=== PATIENT | female | born 1985 | race Caucasian/White ===

== ENCOUNTER 2023-11-09 22:49 | Emergency (ER) | payer OTHER, SELFPAY ==
[2023-11-09 22:51] VITALS: BP 132/94
--- NOTE | 2023-11-10 00:20 | ED.GENMED ---
History of Present Illness
<LEONARDO Mueller - Last Filed: 11/10/23 05:25>
General
Chief Complaint: Back Pain
Source: spouse
Exam Limitations: none
Time Seen by Provider: 11/10/23 00:09
Nursing documentation reviewed up to this point in time: agreed with
History of Present Illness
History of Present Illness:
Pt is a 38 y/o F with complaints of left sided lower back pain x9 hrs. The pt reported that she had returned from a run and when she reached in her refrigerator, she had turned her body to cough and felt a sudden onset of lower back pain. The pain
is described as a sharp sensation that is rated 10/10 in severity. Course of pain is worsening. The pain is better with sitting and worse with laying down and movement. She has tried Ibuprofen, Naproxen, and 1x oxycodone at 9pm without any relief.
The pain radiates down the left leg. Pt denies numbness, tingling, weakness, and urinary or bowel incontinence.
<Bruce Jerome DO - Last Filed: 11/10/23 02:54>
General
Source: patient
Past History
<LEONARDO Mueller - Last Filed: 11/10/23 05:25>
Past History
ED Past Medical History: None
ED Past Surgical History: None
Review of Systems
<LEONARDO Mueller - Last Filed: 11/10/23 05:25>
Review of Systems
Allergies reviewed?: Yes
Constitutional: Reports no symptoms
EENT: Reports no symptoms
Respiratory: Reports no symptoms
Cardiac: Reports no symptoms
ABD/GI: Reports no symptoms
: Reports no symptoms
Musculoskeletal: Reports back pain
Skin: Reports no symptoms
Neurological: Reports no symptoms
Endocrine: Reports no symptoms
Hematologic/Lymphatic: Reports no symptoms
Psychiatric: Reports no symptoms
Phy Exam
<LEONARDO Mueller - Last Filed: 11/10/23 05:25>
General Physical Exam
General Presentation: well appearing and moderate distress
General age: appears stated age
General Skin: warm and dry
General Habitus: normal
General Mental: alert
General Hydration: appears well hydrated
ENT Exam
ENT Exam: neck supple
Eye Exam
Eye Exam: cornea clear and conjunctiva normal
Cardiovascular Exam
Cardiovascular Exam: regular rate/rhythm and normal peripheral pulses
Pulmonary Exam
Pulmonary Exam: no respiratory distress
Gastrointestinal Exam
Gastrointestinal Exam: soft and non distended
Neurological Exam
Neurological Exam: alert, oriented x3, normal reflexs and no sensory deficits
Musculoskeletal Exam
Musculoskeletal Exam: back pain, no edema, back tenderness, neuro vasc intact and other (Decreased lumbar flexion and extension. Positive straight leg raise. Positive crossed straight leg raise.)
Skin Exam
Skin Exam: normal color and warm/dry
Psychiatric Exam
Psychiatric Exam: normal mood/affect
Course
<LEONARDO Mueller - Last Filed: 11/10/23 05:25>
Orders/Labs/Results
Orders:
Orders
11/10/23 01:02
Diazepam [Valium] 5 mg PO NOW STA
11/10/23 01:37
HCG, Urine Qualitative Screen Urgent
Date Specimen was Collected: 11/10/23
Time Specimen was Collected: 01:27
Comment: ADD ON
Urinalysis Reflex To Culture Urgent
Date Specimen was Collected: 11/10/23
Time Specimen was Collected: 01:27
11/10/23 01:48
Add On- LAB Urgent
Tests Added?: urine hcg
Ketorolac [Toradol] 30 mg IM NOW STA
Vital Signs
Initial and Last Documented VS:
Initial Vital Signs
Temp Pulse Resp BP Pulse Ox
97.8 F 84 22 132/94 100
11/09/23 22:51 11/09/23 22:51 11/09/23 22:51 11/09/23 22:51 11/09/23 22:51
Last Documented Vital Signs
Temp Pulse Resp BP Pulse Ox
97.8 F 80 13 133/78 97
11/09/23 22:51 11/10/23 02:59 11/10/23 02:59 11/10/23 02:59 11/10/23 02:59
<Bruce Jerome DO - Last Filed: 11/10/23 02:54>
Orders/Labs/Results
Orders:
Orders
11/10/23 01:02
Diazepam [Valium] 5 mg PO NOW STA
11/10/23 01:37
HCG, Urine Qualitative Screen Urgent
Date Specimen was Collected: 11/10/23
Time Specimen was Collected: 01:27
Comment: ADD ON
Urinalysis Reflex To Culture Urgent
Date Specimen was Collected: 11/10/23
Time Specimen was Collected: 01:27
11/10/23 01:48
Add On- LAB Urgent
Tests Added?: urine hcg
Ketorolac [Toradol] 30 mg IM NOW STA
Vital Signs
Initial and Last Documented VS:
Initial Vital Signs
Temp Pulse Resp BP Pulse Ox
97.8 F 84 22 132/94 100
11/09/23 22:51 11/09/23 22:51 11/09/23 22:51 11/09/23 22:51 11/09/23 22:51
Last Documented Vital Signs
Temp Pulse Resp BP Pulse Ox
97.8 F 80 13 133/78 97
11/09/23 22:51 11/10/23 02:59 11/10/23 02:59 11/10/23 02:59 11/10/23 02:59
<LEONARDO Mueller - Last Filed: 11/10/23 05:25>
MDM/Problems Addressed
Differential Diagnosis Includes:
Acute lumbar strain
Lumbar radiculopathy
<LEONARDO Mueller - Last Filed: 11/10/23 05:25>
*Critical Care Note
Total Time (30-74mins, 75-104mins- exclusive of procedures): Not Applicable
ED Attending Note
<LEONARDO Mueller - Last Filed: 11/10/23 05:25>
-
Portions of this chart may have been created with voice recognition software.� Occasional wrong word or��sound alike� substitutions may have occurred due to the inherent limitations of voice recognition software.
<Bruce Jerome DO - Last Filed: 11/10/23 02:54>
ED Attending Note
Patient seen and examined by attending physician: Yes
I performed the substantive portion of visit, reviewed & personally made and approve the management plan that is documented in note by myself or NEELA.: Yes
ED Attending Note:
Pleasant 38-year-old female presents with left-sided lower back pain that is been present since 3 PM. She states that she got back from a run and was at her refrigerator. She reached in and twisted her torso and felt immediate pain. She states
that it was sharp and it was 10 out of 10. She reports that her pain is worse when lying down and with movement. She took NSAIDs and oxycodone without relief. She does report the pain rating down her left leg. Denies numbness or tingling.
Denies bowel or bladder retention or incontinence. Patient was seen in conjunction with the PA student. I have reviewed and agree with the history and treatment plan presented. On my independent physical exam, patient is awake, alert, and
oriented x3, moderate acute distress. No respiratory distress. She does have left CVA tenderness. Denies abdominal pain. No abdominal tenderness to palpation.
11/10/2023 0252 AM: Patient feeling much better. She is able to ambulate around the room. She states that the medications have worked. Will discharge her.
Discharge Plan
Departure
Patient Disposition: Home (Routine Discharge)
Date of Disposition: 11/10/23
Time of Disposition: 02:52
Patient with high blood pressure during this ER visit?: Yes
Condition: Good
Discharge Problem:
Back pain
Instructions: Low Back Pain (DC), BLOOD PRESSURE
Prescriptions:
New
diclofenac sodium 75 mg tablet,delayed release (DR/EC)
75 mg PO BID Qty: 10 0RF
cyclobenzaprine 5 mg tablet
5 mg PO BID PRN (Reason: muscle spasm) Qty: 10 0RF
Referrals:
Amelia Rogel CRNP [Family Provider] -
Activity Restrictions/Additional Instructions:
It was a pleasure meeting you and taking part in your care. We hope for your continued healing and wellness.
Please read discharge instructions in their entirety. However, they are for general education and may not describe your exact diagnosis at discharge. Information on your ER visit and medical conditions were discussed with you along with appropriate
follow up information...
If indicated, please take your medications as instructed and indicated on discharge paperwork.
Please schedule a follow up appointment as directed. Call to schedule an appointment
Please return to the emergency department with ANY change in, persisting, or worsening of symptoms. If any of your symptoms do not improve, or persist, or become more severe within 6-12 hours, please return to the emergency department for further
care.
Please return to the emergency department if you develop a headache, neck pain/stiffness, fever greater than 100.4F, chest pain, shortness of breath, persistent nausea, vomiting, slurred speech, difficulty walking, numbness/tingling, weakness, signs
of infection or any other symptoms that are worrisome to you.
If you have any questions or concerns please do not hesitate to call the Hospital at or E-mail me directly at [email or web address]
Interventions
Interventions:
*Risk Screen - Suicide Last Done: 11/09/23 22:51
*General Assessment Last Done: 11/09/23 23:07
*Neglect/Abuse Screening Last Done: 11/09/23 22:51
ED- Fall Risk Assessment Last Done: 11/09/23 23:07
*ED COVID-19 Vaccine History Last Done: 11/09/23 23:07
*Nursing Disposition Last Done: 11/10/23 03:00
ED-Musculoskeletal Assessment Last Done: 11/09/23 23:10
Discharge Date and Time
Discharge Date/Time: 11/10/23 03:01
Print Language: SPANISH
[2023-11-10] MEDS: VALIUM 5 MG PO (01:05)
[2023-11-10 01:48] LABS: Urine Albumin Negative (Neg - Trace); Urine Bilirubin Negative (Negative); Urine Character Clear (Clear); Urine Color Yellow; Urine Glucose Negative (Negative); Urine Ketone Negative (Negative); Urine Leukocyte Negative (Negative); Urine Nitrite Negative (Negative); Urine Occult Blood Negative (Negative); Urine Specific Gravity 1.015 (<1.030); Urine Urobilinogen Negative (Neg - 1+)
[2023-11-10] MEDS: TORADOL 30 MG IM (01:50)
[2023-11-10 01:56] LABS: HCG, Urine Qualitative Screen Negative
[2023-11-10 02:59] VITALS: BP 133/78
== END 2023-11-10 03:01 | disposition home or self-care (01) ==
LOC: EMR 22:49
PROVIDERS: EMERGENCY PHYSICIAN Student in an Organized Health Care Education/Training Program; FAMILY PHYSICIAN Nurse Practitioner Adult Health
DX: M54.50 Low back pain, unspecified (principal); R03.0 Elevated blood-pressure reading, without diagnosis of hypertension
CPT/HCPCS: 99284; 96372; 81003; 81025

== ENCOUNTER 2024-09-13 23:27 | Emergency (ER) | payer OTHER, SELFPAY ==
[2024-09-13 23:42] VITALS: BP 116/85
[2024-09-14 00:27] LABS: HCG, Serum Qualitative Screen Negative
[2024-09-14 00:54] LABS: Hematocrit 36.9 % (37.0-47.0); Hemoglobin 13.1 g/dL (12.0-16.0); Mean Corp Hgb Conc. 35.5 g/dL (33.0-37.0); Mean Corpuscular Volume 91.3 fL (81.0-99.0); Nucleated Red Blood Cells % 0 %; Platelet Count 285 10^3/uL (130-400); Red Cell Dist. Width 12.4 % (11.5-14.5)
[2024-09-14 00:57] LABS: ALT (SGPT) 18 U/L (0-35); AST (SGOT) 21 U/L (14-36); Albumin 4.6 g/dl (3.5-5.0); Alkaline Phosphatase 48 U/L (38-126); Blood Urea Nitrogen 11 mg/dl (7-17); Calcium 10.0 mg/dl (8.4-10.2); Carbon Dioxide 23 mmol/L (22-30); Chloride 106 mmol/L (98-107); Glucose 116 mg/dl (70-99); Lipase 63 U/L (23-300); Potassium 4.2 mmol/L (3.5-5.1); Sodium 137 mmol/L (135-145); Total Protein 7.6 g/dl (6.3-8.2); eGFR > 60.00
[2024-09-14 02:22] VITALS: BP 124/76
[2024-09-14] MEDS: OMNIPAQUE 50 ML PO (02:34)
== END 2024-09-14 03:52 ==
LOC: EMR 23:27
PROVIDERS: Student in an Organized Health Care Education/Training Program; EMERGENCY PHYSICIAN Emergency Medicine; FAMILY PHYSICIAN Family Medicine
DX: R10.9 Unspecified abdominal pain (principal); Z53.21 Procedure and treatment not carried out due to patient leaving prior to being seen by health care provider
CPT/HCPCS: 80053; 83690; 84703; 85025

== ENCOUNTER 2024-09-15 03:32 | Observation (INO) | payer OTHER, SELFPAY ==
[2024-09-14 19:29] VITALS: BP 149/82
[2024-09-14] MEDS: OMNIPAQUE 50 ML PO (19:38)
[2024-09-14 19:56] LABS: Hematocrit 36.3 % (37.0-47.0); Hemoglobin 12.4 g/dL (12.0-16.0); Mean Corp Hgb Conc. 34.2 g/dL (33.0-37.0); Mean Corpuscular Volume 93.8 fL (81.0-99.0); Nucleated Red Blood Cells % 0 %; Platelet Count 275 10^3/uL (130-400); Red Cell Dist. Width 12.6 % (11.5-14.5)
[2024-09-14 20:14] LABS: HCG, Serum Qualitative Screen Negative
[2024-09-14 20:23] LABS: ALT (SGPT) 14 U/L (0-35); AST (SGOT) 17 U/L (14-36); Albumin 4.2 g/dl (3.5-5.0); Alkaline Phosphatase 38 U/L (38-126); Blood Urea Nitrogen 8 mg/dl (7-17); Calcium 9.3 mg/dl (8.4-10.2); Carbon Dioxide 26 mmol/L (22-30); Chloride 108 mmol/L (98-107); Glucose 91 mg/dl (70-99); Lipase 127 U/L (23-300); Potassium 4.3 mmol/L (3.5-5.1); Sodium 138 mmol/L (135-145); Total Protein 7.0 g/dl (6.3-8.2); eGFR > 60.00
[2024-09-14 22:05] VITALS: BP 118/78
--- NOTE | 2024-09-14 23:04 | ED.GENMED ---
History of Present Illness
General
Chief Complaint: Abdominal Pain
Source: patient
Exam Limitations: none
Time Seen by Provider: 09/14/24 23:02
Nursing documentation reviewed up to this point in time: agreed with
History of Present Illness
History of Present Illness:
Note:
CHIEF COMPLAINT(S)
Abdominal pain and bloating
HISTORY OF PRESENT ILLNESS
The patient is a 39-year-old female with no past medical history presenting with severe generalized lower abdominal pain and bloating that began abruptly around 7:00 PM after having a lunch meal and a light snack of pretzels. She reported that the
pain was sharp and required her to lay down, preventing her from eating dinner. The discomfort was initially sharp and evolved into generalized discomfort. She attempted to sleep but was in significant pain and vomited due to the discomfort.
Additionally, she experienced chills, fever, and a feeling of fullness or pressure in the abdomen later that night, which was ameliorated temporarily with Tylenol, reducing her fever to approximately 99�F. She was unsure of her temperature prior to
the fever. The patient visited her primary care physician, who noted an elevated white blood cell count and found bacteria in her urine sample, suggesting a bladder infection. However, the patient did not experience dysuria or urinary frequency.
Instead, she described abdominal distension without bowel movement urgency and noted that her abdomen felt hard, resembling . The patient experienced intermittent sharp pains causing her to bend over, making walking difficult.
The patient denies any diarrhea, chest pain, or recent contact with sick individuals. She mentions occasional indigestion while trying to eat but denies any significant heartburn. She denies pelvic pain, vaginal bleeding, abnormal discharge.
Regarding medical history, she had a recent yeast infection that was treated successfully. There is no past surgical history, particularly no abdominal surgeries reported. The patient does not want medication for pain management at this time.
REVIEW OF SYSTEMS
- Gastrointestinal: Generalized lower abdominal pain and bloating, nausea and vomiting occurred once, sensation of fullness, episodic sharp pains.
- Constitutional: Chills, fever reported.
- Urinary: No dysuria, no urgency.
PHYSICAL EXAM
Nursing notes reviewed and vital signs reviewed.
General: Patient is well appearing and in no acute distress; non-toxic
Skin: Warm and dry, no rashes or lesions
Head: Normocephalic, atraumatic
Eyes: Sclera non-icteric. EOMs intact.
Cardiac: Regular rate and rhythm, no murmurs
Peripheral Vascular: No lower extremity swelling or edema
Pulm: Normal respiratory effort
Abdomen: Mild abdominal distention today, lower abdominal tenderness to palpation with no guarding, no rebound tenderness, or right side >left
Neuro: CN II-XII intact, no focal neurologic deficits.
Psychiatric: Appropriate mood and affect.
PLAN
- CT scan of the abdomen pelvis ordered prior to my evaluation
- CBC, CMP, urinalysis
DIFFERENTIAL DIAGNOSIS
The Differential Diagnosis includes, in no particular order and is not limited to:
1. Appendicitis
2. Diverticulitis
3. Gastroenteritis
4. Urinary tract infection
5. Ovarian cyst
6. Irritable bowel syndrome
7. Pelvic inflammatory disease
8. Constipation
9. Small bowel obstruction
10. Interstitial cystitis
CHART REVIEW
Reviewed ER physician documentation from 11/10/2023 patient seen for left-sided lower back pain she was to have nonspecific low back pain with unremarkable workup
MDM/DISCHARGE
39-year-old female with no past medical history who presents emergency department today with concerns of generalized abdominal pain. She attempted to be seen yesterday but unfortunately he left because of the wait. At that time, she did have a
white blood cell count of 16,000. She saw her primary care provider who started her on antibiotics for UTI and today her white blood cell count is 8. She is afebrile. She went for CAT scan today which showed findings concerning for mild
appendicitis. Surgery made aware. Patient will be admitted to surgery service. Zosyn started.
Past History
Past History
ED Past Medical History: None
ED Past Surgical History: None
Phy Exam
Physical Exam
Physical Exam:
see hpi
Course
Orders/Labs/Results
Orders:
Orders
09/14/24 19:32
Test Result ONCE
09/14/24 19:34
Iohexol [Omnipaque] 50 ml .ROUTE .STK-MED ONE
09/14/24 19:38
Iohexol [Omnipaque] See Protocol PO NOW STA
09/14/24 19:43
Complete Blood Count/With Diff Urgent
Comprehensive Metabolic Panel Urgent
HCG, Serum Qualitative Screen Urgent
Lactic Acid Urgent
Lipase Urgent
09/14/24 19:45
CT Abd/pel W Iv And Oral Contr Urgent
Comment:
Reason For Exam: bilateral lower abd pain
09/14/24 23:16
Urinalysis Reflex To Culture Urgent
Date Specimen was Collected: 09/15/24
Time Specimen was Collected: 05:37
09/15/24 00:50
0.9% Sodium Chloride 1000 ml [Nss] 1,000 ml IV BOLUS
09/15/24 00:52
Piperacillin/Tazo 4.5 Gram [Zosyn] 4.5 gram in 100 ml IV NOW
09/15/24 02:29
Admit/Transfer Patient As Directed
Co-Sign Provider:
Level of Care: Observation services
Assign to:: Medical/Surgical
Physician / Group: Dr. Collins / General Surgery
Diagnosis: Acute appendicitis
09/15/24 02:30
PRN Pain Medication Management As Directed
May give lesser potent ordered pain med per pt: Yes
preference::
Protocol:: Medication orders for pain may be administered in a
manner that supports deferring to patient preference
when the pt is:
- Requesting an ordered lesser potent pain medication.
Least to most potent pain medications are defined
as: acetaminophen < NSAID < tramadol < opioids
(morphine, oxycodone, hydromorphone).
- Requesting a lesser dose of the same medication IF
ORDERED.
- Requesting a less intrusive route of administration
if both routes are prescribed by the provider (PO <
IV).
09/15/24 02:31
Code Status As Directed
Resuscitation Status: Full Code
09/15/24 03:52
0.9% Sodium Chloride 1000 ml [Nss] 1,000 ml IV 75 mls/hr
Benzocaine/Menthol [Anesthetic Lozenge] 1 lozenge PO Q4HPRN PRN
HYDROmorphone [Dilaudid] 0.5 mg IV Q2HPRN PRN
HYDROmorphone [Dilaudid] 1 mg IV Q2HPRN PRN
Ketorolac [Toradol] 10 mg IV Q6HPRN PRN
Ondansetron Injectable [Zofran] 4 mg IV Q6HPRN PRN
09/15/24 03:52
Activity As Directed
Activity Level: As Tolerated
Anti-embolism (KATHERIN) Hose As Directed
Type: Thigh high
Bladder Scan As Directed
Follow Bladder Retention/Intermittent Cath Algorithm?: Yes
PRN if no void in __ hours: 6
Frequency: Per Retention Algorithm
If Bladder Scan Result >: 400
then:: Straight cath
Intake/ Output As Directed
Frequency: Per unit guidelines
Pneumatic Compression Sleeves As Directed
Type: Knee high
Straight Cath As Directed
Frequency: Per Retention Algorithm
Additional Instructions: as per intermittent urinary catheter algorithm
Vital Signs As Directed
Frequency: Per unit guidelines
Weight As Directed
Frequency: Once
O2 Therapy [RESP] Routine
Titrate/Wean O2 to maintain O2 sat greater than (%): 92
DX Deep Vein Thrombosis Video Routine
09/15/24 06:00
Electrocardiogram (*1) IN AM
Reason for Study: PreOp
Other Reason for Exam: Monitor QTc
NPO
Allow oral meds: No
Allow clear liquids: No
Basic Metabolic Panel IN AM
Complete Blood Count/No Diff IN AM
09/15/24 08:00
Escitalopram Oxalate [Lexapro] 5 mg PO DAILY
09/15/24 18:00
Enoxaparin Sodium [Lovenox] 40 mg SC QPM
Abnormal Lab Results
09/14/24
19:43
RBC 3.87 L 10^6/uL
(4.20-5.40)
Hct 36.3 L %
(37.0-47.0)
MCH 32.0 H pg
(27.0-31.0)
Chloride 108 H mmol/L
(98-107)
09/14/24 19:43
09/14/24 19:43
Vital Signs
Initial and Last Documented VS:
Initial Vital Signs
Temp Pulse Resp BP Pulse Ox
98.6 F 89 16 149/82 100
09/14/24 19:29 09/14/24 19:29 09/14/24 19:29 09/14/24 19:29 09/14/24 19:29
Last Documented Vital Signs
Temp Pulse Resp BP Pulse Ox
98.1 F 67 20 109/76 100
09/15/24 03:40 09/15/24 03:40 09/15/24 03:40 09/15/24 03:40 09/15/24 03:40
*Pulse Oximetry
SaO2: 100
Oxygen Mode of Delivery: Room air
Patient hypoxic: no
*Critical Care Note
Total Time (30-74mins, 75-104mins- exclusive of procedures): Not Applicable
ED Attending Note
-
Portions of this chart may have been created with voice recognition software.� Occasional wrong word or��sound alike� substitutions may have occurred due to the inherent limitations of voice recognition software.
Discharge Plan
Departure
Patient Disposition: Admit
Date of Disposition: 09/15/24
Time of Disposition: 01:46
Admit to: Med/Surg
Admit to doctor: Dr. Collins
Presentation/result/management discussed w/ accepting MD/DO: Dr. Collins
Patient with high blood pressure during this ER visit?: Yes
Condition: Fair
Discharge Problem:
Acute appendicitis
Interventions
Interventions:
*Risk Screen - Suicide Last Done: 09/14/24 21:58
*General Assessment Last Done: 09/15/24 00:05
*Neglect/Abuse Screening Last Done: 09/14/24 21:58
*ED- Fall Risk Assessment Last Done: 09/14/24 21:58
*ED COVID-19 Vaccine History Last Done: 09/15/24 00:00
*Nursing Disposition Last Done: 09/15/24 03:18
RO-Gyhehf-Uwpgcgoxbl Assessment Last Done: 09/15/24 00:00
Discharge Date and Time
Discharge Date/Time: 09/15/24 03:43
[2024-09-15] VITALS (9 sets, daily range): BP systolic 98–124; BP diastolic 68–88; BMI 24.6; BMI 23.1
[2024-09-15] MEDS: NSS 1000 IV ×2 (01:04→04:08)
[2024-09-15] MEDS: ZOSYN 100 IV (01:04)
--- NOTE | 2024-09-15 02:48 | HPS.HSE ---
Addendum entered and electronically signed by Tucker Collins MD 09/15/24 10:50:
I saw and examined the patient.
The Farm Equipment Maintenance Supervisor's note was reviewed and I agree with the note.
Comment: Abd pain that began last night, preet-umbilical and has migrated to suprapubic area. Saw PCP who dx'ed UTI and started cipro yesterday. Abd pain did not improve prompting re-presentation to ED. Denies f/c/n/v. Denies dysuria. Labs
unremarkable. UA with sterile pyuria. CT c/w acute appendicitis. OCTOR for lap appy, IV abx, NPO.
Original Note:
Family Physician
-
Family Physician: Sean Albarran
Chief Complaint
-
Abdominal pain
History of Present Illness
Patient is a 39 year old female with no significant past medical history, who presents to the emergency department with generalized, lower abdominal pain that began last night around 7 pm. She reported that she worked out yesterday and afterwards
around 7 pm she began to have shooting pains in her lower abdomen, she vomited and could not sleep overnight. Her pain became generalized abdominal pain and fullness. She did come to the emergency department around midnight, had lab work completed
and left before being seen. Patient reports she still had pain this morning, so she went to see her primary care provider, who noted elevated WBC and found bacteria in her urine, suggesting a bladder infection. She was started on Ciprofloxacin 500
mg PO BID, which she has taken two doses. Patient reports that she has had UTIs in the past and symptoms were different this time. Primary care provider told patient to return to the emergency department if symptoms worsened. Patient returned to the
emergency department this evening with worsening symptoms. The patient denies any diarrhea, chest pain, or recent contact with sick individuals. She mentions occasional indigestion while trying to eat but denies any significant heartburn. She denies
pelvic pain, vaginal bleeding, abnormal discharge. There is no past surgical history, particularly no abdominal surgeries reported.
In the emergency department, labs CBC and CM unremarkable, HCG Serum Qualitative negative, Lactic acid 1.6, Lipase 127. Vital signs stable, afebrile. UA reflex to culture, ordered.
CT Abd/Pelvis w/IV and oral contrast showed: Mild appendicitis. No perforation or abscess.
Patient received NSS 1 L bolus and IV antibiotics, Zosyn 4.5 g IV x 1 dose, in the emergency department.
ED provider, Shagufta Vidal PA-C reviewed with General Surgery, Dr. Collins, who is accepting the patient to his service.
Plan: NPO at midnight, IV antibiotics, IV fluids, pain management, and antiemtics.
Medical History
Past Medical History
Past Medical History: Reports Psychiatric (mild anxiety)
Past Surgical History: Reports Other (Balloon Sinuplast, 2019)
Social History
Tobacco: Non-smoker
Alcohol: Occasional (5 drinks/weekly)
Drug: None
Personal:
Living: With Family
Employment: Employed
Family History
Family History: Not pertinent
Allergies / Home Medications
Allergies reflects when Allergies were last updated in [employer].
Home Medications with original date entered in [employer]
Allergy/Medication List:
Patient Allergies
Allergy/AdvReac Type Severity Reaction Status Date / Time
No Known Allergies Allergy Verified 09/14/24 19:31
Home Medications
�Medication �Instructions �Recorded
escitalopram oxalate 5 mg tablet 5 mg PO DAILY 09/15/24
(Lexapro)
Review of Systems
-
History Source: Patient
A 12 point ROS was completed and negative except as noted: Yes
Constitutional: Reports Sleep Disturbance (unable to sleep d/t abdominal pain)
EENT: Reports No Symptoms
Respiratory: Reports No Symptoms
Cardiac: Reports No Symptoms
Abdomen/GI: Reports Abdominal Pain (generalized lower abdominal pain, being to centralize to right lower abdomen), Nausea and Vomiting
: Reports No Symptoms
Musculoskeletal: Reports No Symptoms
Skin: Reports No Symptoms
Neurological: Reports No Symptoms
Endocrine: Reports No Symptoms
Psych: Reports No Symptoms
Physical Exam
Vital Signs
Vital Signs
Temp Pulse Resp BP Pulse Ox
98.2 F 98 18 124/88 98
09/15/24 01:43 09/15/24 01:43 09/15/24 01:43 09/15/24 01:43 09/15/24 01:43
Physical Exam
General: Well Developed, Well Nourished, Comfortable, Conversant and Pain (right side lower abdominal pain)
HEENT: NormoCephalic, Moist mucous membranes and PERRLA
Respiratory: Clear and Non Labored Respirations
Cardiac: S1/S2 and Regular Rhythm; No Peripheral Edema
GI: Soft and Tender (tenderness, right side > left side)
Skin: Warm and Dry; No Rash
Neuro: Awake, Alert, Oriented and Cranial Nerves Intact
Psych: Calm and Intact Judgment/Insight
Laboratory Results
-
09/14/24 19:43
09/14/24 19:43
Laboratory Results
Lactic Acid 1.6 mmol/L (0.7-2.0) 09/14/24 19:43
Total Bilirubin 0.6 mg/dl (0.2-1.3) 09/14/24 19:43
AST 17 U/L (14-36) 09/14/24 19:43
ALT 14 U/L (0-35) 09/14/24 19:43
Alkaline Phosphatase 38 U/L (38-126) 09/14/24 19:43
Lipase 127 U/L (23-300) 09/14/24 19:43
Data Reviewed
-
CT Scan: Report Reviewed by me and Discussed with Patient
Lab Data: Labs Reviewed by me
Impression/Plan
-
IMPRESSION:
Patient is a 39 year old female with no significant past medical history, who presents to the emergency department with generalized, lower abdominal pain that began last night around 7 pm.
PLAN:
Acute appendicitis
-Admit to General Surgery, Med Surg under the service of Dr. Collins
-CT Abd/Pelvis w/IV and oral contrast showed: Mild appendicitis. No perforation or abscess.
-NPO until seen by surgery, IV fluids NSS @ 75 mls/hr
-IV antibiotics: Continued Zosyn 3.375 mg Q6H.
-Pain medication: Toradol, Dilaudid
-Antiemetics: Zofran
-Continue home medications: Escitalopram 5 mg PO daily
DVT prophylaxis: SCD's
Code status: Full code
--- NOTE | 2024-09-15 04:34 | PTCARENOTE ---
Received patient from ED at approx 0340. Patient ambulated w/o assistance from stretcher to bed. AAA x 3. Call [facility] in reach.
[2024-09-15 05:51] LABS: Urine Character Clear (Clear)
[2024-09-15 06:34] LABS: Urine Red Blood Cell 0-2 /HPF (0-2)
[2024-09-15] MEDS: ZOSYN 50 IV ×2 (07:56→13:39)
[2024-09-15 08:39] LABS: Hematocrit 34.8 % (37.0-47.0); Hemoglobin 11.9 g/dL (12.0-16.0); Mean Corp Hgb Conc. 34.2 g/dL (33.0-37.0); Mean Corpuscular Volume 92.1 fL (81.0-99.0); Platelet Count 238 10^3/uL (130-400); Red Cell Dist. Width 12.8 % (11.5-14.5)
[2024-09-15 09:15] LABS: Blood Urea Nitrogen 7 mg/dl (7-17); Calcium 8.7 mg/dl (8.4-10.2); Carbon Dioxide 21 mmol/L (22-30); Chloride 113 mmol/L (98-107); Estimated Creatinine Clearance 118 ml/min; Glucose 90 mg/dl (70-99); Potassium 4.1 mmol/L (3.5-5.1); Sodium 137 mmol/L (135-145); eGFR > 60.00
--- NOTE | 2024-09-15 10:40 | CM ---
IA completed. Lives in 2 story home with and daughter. Independent in all activities. No hx of HC, DME or SNF.Insurance, PCP and RX confirmed
PCP: Brandon Albarran
Rx: Celso/ildefonso
Plan: Home, no needs
--- NOTE | 2024-09-15 10:44 | CON.GS ---
Addendum entered and electronically signed by Tucker Collins MD 09/15/24 13:46:
I was physically present and personally performed the cartwright portions of the surgical evaluation and/or procedure with the resident. I discussed the findings, reviewed the resident�s note, and confirmed the medical decision-making. I provided direct
supervision as required and agree with the assessment and plan as documented with the following additions/corrections:
See my addendum to H&P
Original Note:
Consultation
-
Date/Time Consultation Performed: 09/15 08:00
Performing Provider: Tucker Rivera
Reason for Consultation: Acute Appendicitis.
Medical History
-
Chief Complaint: lower abdominal pain
History of Present Illness:
39 yr F with no past h/o, who presented to the ER with generalized, lower abdominal pain that began last night around 7 pm. She began to have shooting pains in her lower abdomen associated with vomiting and could not sleep overnight. Her pain became
generalized abdominal pain and fullness. She arrived to the ER , lab works were done and she left the ER without seeing by . Patient reported she still had pain this morning, so she went to see her PCP, who noted elevated WBC and found bacteria in
her urine, probably due to UTI and was started on Ciprofloxacin 500 mg PO BID, which she has taken two doses.PCP told patient to return to the ER if symptoms worsened.
Abdominal pain is sharp in nature at lower abdomen, non radiating, aggravated while on walking, lying down and mildly relieved by heat pad, pain medication. Not associated with nausea, vomiting, diarrhea, chest pain, or recent contact with sick
individuals. She mentions occasional indigestion while trying to eat but denies any significant heartburn. She denies pelvic pain, dysuria, vaginal bleeding, abnormal discharge.
Past Medical History
Past Medical History: Psychiatric (anxiety)
Past Surgical History: Other (Balloon Sinuplast, 2019)
Social History
Tobacco: Non-Smoker
Alcohol: Occasional
Drug: None
Personal:
Living: With Family
Employment: Employed
Family History
Family History: Reviewed & Not Pertinent
Allergies / Home Medications
Allergy/AdvReac Type Severity Reaction Status Date / Time
No Known Allergies Allergy Verified 09/14/24 19:31
�Medication �Instructions �Recorded �Confirmed �Type
Fish Oil DAILY 09/15/24 History
Probiotic DAILY 09/15/24 History
Super B Complex DAILY 09/15/24 History
escitalopram oxalate 5 mg tablet 5 mg PO DAILY 09/15/24 09/15/24 History
(Lexapro)
vit D3-vit K2-ca fructoborate DAILY 09/15/24 History
Review of Systems
-
History Source: Patient
Constitutional: Fever and Chills (intermittent )
EENT: No Symptoms
Respiratory: No Symptoms
Cardiac: No Symptoms
Abdomen/GI: Abdominal Pain (started initially at lower abdomen. )
: Other (candidiasis )
Endocrine: No Symptoms
Hematologic/Lymphatic: No Symptoms
A 10 point review of systems was completed, and was negative except as per HPI.
Physical Exam
Vital Signs
Temp Pulse Resp BP Pulse Ox
98.0 F 72 12 98/72 99
09/15/24 08:45 09/15/24 08:45 09/15/24 08:45 09/15/24 08:45 09/15/24 08:45
09/14/24 09/15/24 09/16/24
06:59 06:59 06:59
Actual Weight 64.949 kg
Body Mass Index (BMI) 23.1
Lab Results
09/15/24 08:25
09/15/24 08:25
WBC 6.7 10^3/uL (4.8-10.8) 09/15/24 08:25
Hgb 11.9 g/dL (12.0-16.0) L 09/15/24 08:25
Hct 34.8 % (37.0-47.0) L 09/15/24 08:25
Plt Count 238 10^3/uL (130-400) 09/15/24 08:25
Abs Immat Gran (auto) 0.0 10^3/uL (0-0.05) 09/14/24 19:43
Neutrophils % 63.7 % (42.2-75.2) 09/14/24 19:43
Physical Exam
General: Pain
Respiratory: Clear
Cardiac: S1/S2 and Regular Rhythm
GI: Soft, Non Distended and Tender (HYPOGASTRIC REGION- TENDERNESS )
Musculoskeletal: No Clubbing
Skin: Warm
Neuro: AO x 3
Hematologic/Lymphatic: No Lymphadenopathy
Psych: Calm
Assessment / Plan
-
39 year old female with no significant past medical history presented with lower abdominal pain.
# Abdominal pain secondary to Acute Appendicitis:
- WBC 16.1-->8.4---> 6.7
-Afebrile
-Urinalysis= Urine Occult Blood Reflex, Leukocyte esterase positive==> which indicates sterile pyuria.
CT Abd/pel W Iv And Oral Contrast 09/14/24:
Appendix: Distended, 8.7 mm. Slightly indistinct margin and soft tissue haziness.
Mild appendicitis. No perforation or abscess.
Pelvis- Trace free fluid. No focal collection or abscess. Small ovarian cysts/follicles measuring up to 1.8 cm on the right. Intrauterine contraceptive device in place.
PREOP EVALUATION:
- NPO as a preop evaluation
-Continue IV antibiotics Continue Zosyn 3.375 mg Q6h (Day 1)
-continue Toradol, Dilaudid
- zOfran for vomiting PRN.
- Planning for the laparoscopic appendectomy.
- Monitor H&H becasue of HB= 11.9 (l)
DVT prophylaxis: SCD's
Code status: Full code
[2024-09-15] MEDS: TORADOL 10 MG IV (12:08)
--- NOTE | 2024-09-15 15:55 | OR.RPT ---
Operative Report
Operative Report
Primary Surgeon: Dennis
Pre-op Diagnosis: Acute appendicitis
Post-op Diagnosis: Same
Procedure Performed: Laparoscopic appendectomy
Anesthesia Type: GETA
Specimen / Cultures: Appendix
Estimated Blood Loss: 5cc
Complications: None immediate
Operative Findings: Mildly inflamed turgid appendix, minimal clear pelvic fluid
Date of Surgery: 09/15/24
Indications: This 39F developed right lower quadrant and suprapubic abdominal pain and on workup was found to have acute appendicitis. Laparoscopic appendectomy was elected.
Description of procedure: The patient was placed on the operating table in the supine position. General anesthesia was induced. A time-out was completed verifying correct patient, procedure, site, positioning, and special equipment prior to
beginning this procedure. An orogastric tube was placed. The abdomen was prepped and draped in the usual sterile fashion. A stab incision was made in left upper quadrant and the Veress needle was inserted. Proper position was confirmed by aspiration
and saline meniscus test. The abdomen was insufflated with carbon dioxide to a pressure of 12 mmHg. The patient tolerated insufflation well.
A 5mm optical trocar was then inserted at the left lower quadrant. The laparoscope was inserted and the abdomen inspected. No injuries from initial trocar placement or Veress needle insertion were noted. Additional trocars were then inserted in the
following locations: a 12-mm trocar at the umbilicus and a 5-mm trocar midline in the suprapubic space. The abdomen was inspected and no abnormalities were found. The table was placed in the Trendelenburg position with the right side up. The tip of
the appendix was gently grasped with an atraumatic grasper and retracted toward the patient�s feet and abdominal wall. This maneuver exposed the appendiceal blood supply which was controlled with the Ligasure device. Following this, a laparoscopic
linear cutting stapler with a 45mm kruger load was deployed and used to transect the appendix at its base. The appendix was placed in an endoscopic retrieval bag, removed through the umbilical port, and passed off the table as a specimen.
We then turned our attention to the staple line, which was noted to be hemostatic. Scant clear serous fluid was noted in the pelvis. The umbilical trocar site was closed at the fascial level laparoscopically with 2-0 PDS under direct vision.
Secondary trocars were removed under direct vision and noted to be hemostatic. The laparoscope was withdrawn and the abdomen was allowed to collapse. The skin was closed with subcuticular sutures of 4-0 monocryl and topical skin adhesive. The
orogastric tube was removed.
The patient tolerated the procedure well and was taken to the postanesthesia care unit in stable condition.
== END 2024-09-15 19:06 | disposition home or self-care (01) ==
LOC: 4 WEST ACU 03:32
PROVIDERS: Emergency Medicine; Nurse Practitioner Family; Physician Assistant; ADMITTING PHYSICIAN Surgery; EMERGENCY PHYSICIAN Emergency Medicine; FAMILY PHYSICIAN Family Medicine
DX: K35.80 Unspecified acute appendicitis (principal); Z79.899 Other long term (current) drug therapy; Z87.440 Personal history of urinary (tract) infections
CPT/HCPCS: 44970; 74177; 80048; 80053; 81003; 81015; 83605; 83690; 84703; 85025; 85027; 87086; 88304; 93005; 96365; 99285; G0378; Q9967